=== PATIENT | female | born 1965 | race Caucasian/White ===

== ENCOUNTER 2023-04-01 06:06 | Day surgery (SDC) | payer BC ==
[2023-03-31 08:39] VITALS: BMI 38.0
[2023-03-31 09:14] LABS: Hematocrit 39.6 % (34.9-44.5); Hemoglobin 12.8 g/dL (12.0-15.5); Mean Corpuscular HGB CONC 32.3 g/dL (32.0-36.0); Mean Corpuscular Hemoglobin 24.6 pg (27.0-33.0); Mean Corpuscular Volume 76.2 fl (81.6-98.3); Mean Platelet Volume 10.3 fl (7.4-10.4); Platelet Count 309 10x3/uL (150-450); RBC Distribution Width 15.2 % (11.5-14.5); White Blood Cell (WBC) Count 7.3 10x3/uL (3.5-10.5)
[2023-03-31 09:39] LABS: Anion Gap 15 mmol/L (10-20); BUN (Urea Nitrogen) 16 mg/dL (9.8-20.1); Calc. Creatinine Clearance 0 mL/min (70-130); Calcium 9.7 mg/dL (7.8-10.44); Carbon Dioxide 27 mmol/L (22-29); Chloride 104 mmol/L (98-107); Estimated GFR 66; Glucose 103 mg/dL (70-105); Potassium 3.9 mmol/L (3.5-5.1); Sodium 142 mmol/L (136-145)
[2023-04-01] MEDS ORDERED: CeleCOXIB 100 MG CAP ONE (07:13)
[2023-04-01] MEDS ORDERED: Ondansetron PF 4 MG/2 ML Vial ONE (07:40)
[2023-04-01] MEDS ORDERED: Dexamethasone 4 mg/ml Vial ONE (07:40)
[2023-04-01] MEDS ORDERED: Lidocaine 1% PF 5 ML VIAL ONE (07:40)
[2023-04-01] MEDS ORDERED: Midazolam HCl 2 mg/2 ml Vial ONE (07:41)
[2023-04-01] MEDS ORDERED: fentaNYL 50 mcg/mL 1 mL Vial ONE (07:41)
[2023-04-01] MEDS ORDERED: PROPOFOL 20 ML ONE ×2 (07:41→08:20)
[2023-04-01] MEDS ORDERED: CEFAZOLIN 2 GM VIAL ONE (07:51)
== END 2023-04-01 10:15 | disposition home or self-care (01) ==
LOC: CSHSDC 06:06
PROVIDERS: ATTEND Obstetrics & Gynecology
PROC: 0UB98ZZ Excision of Uterus, Via Natural or Artificial Opening Endoscopic (ICD-10-PCS; principal; 2023-04-01)
DX: N95.0 Postmenopausal bleeding (principal); N84.0 Polyp of corpus uteri; I10 Essential (primary) hypertension; Z79.82 Long term (current) use of aspirin; Z79.899 Other long term (current) drug therapy
CPT/HCPCS: 80048; 85027; 86850; 86900; 86901; 88305; J1100; J2250; J2405; J2704; J3010